=== PATIENT | female | born 1930 | race Caucasian/White ===

== ENCOUNTER 2017-02-24 05:54 | Emergency (ER) | payer MEDICARE ==
[~2017-02-24] VITALS: Ht 165.1 cm; Wt 61.5 kg
[~2017-02-24 05:54] MED LIST: ALEN70TA39 PO; APIX2.5 PO; ASPI81TA82 PO; AZIT500I PO; CALTCHW4 PO; COLL30OI3 TOP; CYCL-36 PO; DILTCD240 PO; FERR324T4 PO; FISH500C PO; FURO1TAB93 PO; FURO20 PO; IPRAAER PO; JOINCAP2 PO; KLOR20TA6 PO; LEVA500T PO; LISI-363 PO; MAGN400 PO; MEDR4PAK3 PO; METO50TA PO; METR-1 PO; NIFE1TAB85 PO; OXYC1SOL5 PO; POTA10TA2 PO; PRIN5TAB PO; ROBIDM5S PO; TEMA7.5 PO; VITA-83 PO; VITA100T13 PO; ZINC220C3 PO; [UNRECOGNIZED DRUG - CODE] PO
[2017-02-24 05:57] VITALS: BP 153/79; PULSE 90; RESP 18; TEMP 97.8; O2SAT 94
[2017-02-24] MEDS ORDERED: VITA100T54 PO (06:21)
[2017-02-24] MEDS ORDERED: APIX2.5T PO (06:21)
[2017-02-24] MEDS ORDERED: METO50TA PO (06:21)
--- NOTE | 2017-02-24 06:28 | PD ---
HPI Chief Complaint: Fall Time Seen by Provider: 06:19 Travel History International Travel<30 days: No Contact w/Intl Traveler<30days: No Traveled to known affect area: No History of Present Illness HPI The patient is an 86-year-old female that got up out of bed to go to the bathroom but her knees gave way and she lost balance and fell. She remembers the events up to the fall but there may have been a brief loss of consciousness after the fall. She fell on her head and right upper arm and suffered a contusion/abrasion to the right forehead. She has a scalp hematoma there. She has newly discovered atrial fibrillation and is on Eliquis for this. She is alert and oriented and not nauseated and has no headache and was the area of the scalp hematoma is palpated. She lives with her son at home. She drinks a glass of wine with dinner and a raspberry vodka martini before bed. She has not had a tetanus shot in over 10 years but she does not want another tetanus shot. PFSH Past Medical History Hx Anticoagulant Therapy: Yes Atrial Fibrillation: Yes Heart Rhythm Problems: Yes (AFIB THIS ADMISSION) Cancer: Yes (benign skin lesions on shoulder) Congestive Heart Failure: Yes (BNP ELEVATED THIS ADMISSION) Diminished Hearing: No Endocrine: No Genitourinary: Yes (Urgency) Hypertension: Yes Immune Disorder: No Insomnia: Yes Musculoskeletal: Yes (LOW BONE DENSITY) Neurologic: Yes (TIA 2013) Psychiatric: No Reproductive: Yes (Hysterectomy) Respiratory: No Immunizations Current: Yes Radiation Therapy: Yes (RIGHT FOOT FOR SKIN CA) Tetanus Vaccination: > 5 Years Influenza Vaccination: No : 4 Para: 4 Past Surgical History Abdominal Surgery: Yes Eye Surgery: Yes (bilateral cataract surgery 2014) Gynecologic Surgery: Yes (D&C 1949, bladder suspension 1969) Hysterectomy: Yes Tonsillectomy: Yes (ADNOIDS) Other Surgery: Yes (HEMORRHOIDECTOMY) Social History Alcohol Use: Yes (1 glass of wine and 1 martini nightly) Tobacco Use: No Substance Use: No Allergies-Medications (Allergen,Severity, Reaction): Coded Allergies: Aspirin (Verified Allergy, Severe, Bleeding, 02/24/17) See Uncoded Allergy/Adv Reaction (Verified Allergy, Unknown, 02/24/17) anesthesia Uncoded Allergies: ANESTHESIA (Allergy, Mild, 02/08/12) Reported Meds & Prescriptions Reported Meds & Active Scripts Active Reported Vitamin B-1 (Thiamine HCl) 100 Mg Tab 100 Mg PO DAILY Metoprolol Tartrate 50 Mg Tab 50 Mg PO BID Eliquis (Apixaban) 2.5 Mg Tab 2.5 Mg PO BID Review of Systems Except as stated in HPI: all other systems reviewed are Neg Physical Exam Narrative GENERAL: The patient is alert, oriented 3, does not appear intoxicated with alcohol and answers questions quickly and appropriately. SKIN: Focused skin assessment warm/dry. There is a 4 centimeter diameter hematoma on the right forehead. There is no associated bony deformity. HEAD: Neither raccoon eyes nor lei sign is present. Normocephalic. EYES: Pupils equal and round. No scleral icterus. No injection or drainage. ENT: No nasal bleeding or discharge. Mucous membranes pink and moist. There is no hemotympanum present. NECK: Trachea midline. No JVD. There is no posterior spinous process tenderness or deformity present. CARDIOVASCULAR: Regular rate and rhythm. No murmur appreciated. RESPIRATORY: No accessory muscle use. Clear to auscultation. Breath sounds equal bilaterally. GASTROINTESTINAL: Abdomen soft, non-tender, nondistended. Hepatic and splenic margins not palpable. No guarding or rebound is present. MUSCULOSKELETAL: No obvious deformities. No clubbing. No cyanosis. No edema. NEUROLOGICAL: Awake and alert. No obvious cranial nerve deficits. Motor grossly within normal limits. Normal speech. PSYCHIATRIC: Appropriate mood and affect; insight and judgment normal. Data Data Last Documented VS Vital Signs Date Time Temp Pulse Resp B/P Pulse Ox O2 Delivery O2 Flow Rate FiO2 02/24/17 06:05 18 94 Room Air 02/24/17 05:57 97.8 90 153/[address] Brain W/O Iv Contrast(Rout) (02/24/17 06:19) Wound Care (02/24/17 06:45) MDM Medical Decision Making Medical Screen Exam Complete: Yes Emergency Medical Condition: Yes Medical Record Reviewed: Yes Interpretation(s) The CT the brain shows a right frontal soft tissue contusion without any associated areas of fracture intracranial bleed. Also noted is a subpoena server atrophy and chronic ischemic small vessel vasculopathy. Differential Diagnosis Scalp contusion, skull fracture, intracranial bleed Narrative Course The patient is alert and oriented without headache or nausea. Her CAT scan does not show any skull fracture or intracranial bleed, only a right frontal soft tissue contusion. Her abrasion/contusion will be bandaged and she will go home. Diagnosis Primary Impression: Scalp contusion Additional Instructions: Please return to the emergency department if you start getting nausea, vomiting , increasing headache or unexplained weakness or sensory loss. Follow-up with your primary care physician next week. Med/Other Pt SpecificInfo: No Change to Meds Disposition: 01 DISCHARGE HOME Condition: Stable Gibran Rizvi MD Feb 24, 2017 06:28
--- NOTE | 2017-02-24 06:55 | RADRPT ---
EXAM DATE/TIME: 02/24/2017 06:32 [facility] COMPARISON: CT BRAIN W/O CONTRAST, November 11, 2015, 22:28. INDICATIONS : Trauma. Fall. Right frontal hematoma. RADIATION DOSE: 60.21 CTDIvol (mGy) MEDICAL HISTORY : Cardiovascular disease. Cerebrovascular disease. SURGICAL HISTORY : None. ENCOUNTER: Initial ACUITY: 1 day PAIN SCALE: 4/10 LOCATION: Right frontal TECHNIQUE: Multiple contiguous axial images were obtained of the head. Using automated exposure control and adj ustment of the mA and/or kV according to patient size, radiation dose was kept as low as reasonably a chievable to obtain optimal diagnostic quality images. DICOM format image data is available electro nically for review and comparison. FINDINGS: There is marked central and cortical atrophy with dilatation of ventricular and sulcal spaces. Scatte red areas of low-attenuation are seen throughout the white matter. 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 There is no parenchymal hemorrhage, acute infarction or mass lesion identified. There a re no extra-axial fluid collections appreciated. The posterior fossa is unremarkable with midline fo urth ventricle. The portion of the orbits and paranasal sinuses visualized are unremarkable. Right f rontal soft tissue hematoma. CONCLUSION: 1. Cerebral atrophy and chronic ischemic small vessel vasculopathy. 2. Right frontal soft tissue contusion. 3. No intraparenchymal hemorrhage. Gilbert Roman MD on February 24, 2017 at 6:50 Board Certified Radiologist. This report was verified electronically.
[2017-02-24 07:31] VITALS: BP 180/80
== END 2017-02-24 07:33 | disposition home or self-care (01) ==
LOC: PHED 05:54
DX: S00.83XA Contusion of other part of head, initial encounter (principal); S00.03XA Contusion of scalp, initial encounter; S00.81XA Abrasion of other part of head, initial encounter; I48.91 Unspecified atrial fibrillation; Z79.01 Long term (current) use of anticoagulants; I10 Essential (primary) hypertension; Z86.73 Personal history of transient ischemic attack (TIA), and cerebral infarction without residual deficits; W18.30XA Fall on same level, unspecified, initial encounter; Y93.89 Activity, other specified; Y92.013 Bedroom of single-family (private) house as the place of occurrence of the external cause; Y99.9 Unspecified external cause status
CPT/HCPCS: 70450; 99284

== ENCOUNTER 2017-03-29 02:44 | Emergency (ER) | payer MEDICARE ==
[~2017-03-29] VITALS: Ht 167.6 cm; Wt 63.0 kg
[~2017-03-29 02:44] MED LIST changes: -ALEN70TA39 PO; -APIX2.5 PO; +APIX2.5T PO; -ASPI81TA82 PO; -AZIT500I PO; -CALTCHW4 PO; -COLL30OI3 TOP; -CYCL-36 PO; -DILTCD240 PO; -FERR324T4 PO; -FISH500C PO; -FURO1TAB93 PO; -FURO20 PO; -IPRAAER PO; -JOINCAP2 PO; -KLOR20TA6 PO; -LEVA500T PO; -LISI-363 PO; -MAGN400 PO; -MEDR4PAK3 PO; -METR-1 PO; -NIFE1TAB85 PO; -OXYC1SOL5 PO; -POTA10TA2 PO; -PRIN5TAB PO; -ROBIDM5S PO; -TEMA7.5 PO; -VITA-83 PO; -VITA100T13 PO; +VITA100T54 PO; -ZINC220C3 PO; -[UNRECOGNIZED DRUG - CODE] PO
[2017-03-29 02:52] VITALS: BP 213/94; PULSE 57; RESP 24; TEMP 97.8; O2SAT 99
[2017-03-29] MEDS ORDERED: SERT25TA83 PO (03:12)
[2017-03-29] MEDS ORDERED: DIGO0.12 PO (03:12)
[2017-03-29] MEDS ORDERED: SODIUM CHLORIDE 0.9% FLUSH 5 ML FLUSH IV FLUSH PRN (03:15)
[2017-03-29 03:38] LABS: AUTOMATED NEUTROPHIL # 3.5 TH/MM3 (1.8-7.7); BASOPHIL % 0.7 % (0.0-2.0); EOSINOPHIL # 0.1 TH/MM3 (0-0.4); EOSINOPHIL % 0.9 % (0.0-4.0); HEMATOCRIT 45.2 % (35.0-46.0); HEMO FLAGS DIFF FINAL; LYMPH % 34.9 % (9.0-44.0); LYMPHOCYTE # 2.3 TH/MM3 (1.0-4.8); MEAN CELL VOLUME 101.2 FL (80.0-100.0); MEAN CORPUSCULAR HEMOGLOBIN 32.9 PG (27.0-34.0); MEAN CORPUSCULAR HGB CONC 32.5 % (32.0-36.0); MONO % 10.5 % (0.0-8.0); PLATELET COUNT 220 TH/MM3 (150-450); RED BLOOD COUNT 4.46 MIL/MM3 (4.00-5.30); RED CELL DISTRIBUTION WIDTH 15.2 % (11.6-17.2); WHITE BLOOD COUNT 6.7 TH/MM3 (4.0-11.0)
--- NOTE | 2017-03-29 03:53 | RADRPT ---
EXAM DATE/TIME: 03/29/2017 03:32 [facility] COMPARISON: CT BRAIN W/O CONTRAST, February 24, 2017, 6:32. INDICATIONS : Trauma, fall. Posterior head laceration. RADIATION DOSE: 35.30 CTDIvol (mGy) MEDICAL HISTORY : Hypertension. Skin cancer. SURGICAL HISTORY : Hysterectomy. ENCOUNTER: Initial ACUITY: 1 day PAIN SCALE: 6/10 LOCATION: cranial TECHNIQUE: Multiple contiguous axial images were obtained of the head. Using automated exposure control and adj ustment of the mA and/or kV according to patient size, radiation dose was kept as low as reasonably a chievable to obtain optimal diagnostic quality images. DICOM format image data is available electro nically for review and comparison. FINDINGS: Noncontrast axial head CT demonstrates the ventricles to be enlarged with a prominent sulcal pattern compatible with atrophy. No acute intracranial hemorrhage, acute cortical infarction, mass or midline shift is seen. There is old lacunar infarct involving the left basal ganglia. There is periventricul ar hypodensity compatible with chronic ischemic change slightly more than expected for patient this a ge.Posterior fossa structures are unremarkable. Bone windows demonstrate no abnormality. Scalp hematoma is present in the right parietal region CONCLUSION: Atrophy. No evidence of acute intracranial pathology. J Carlos Newman MD on March 29, 2017 at 3:50 Board Certified Radiologist. This report was verified electronically.
[2017-03-29 03:54] LABS: BICARBONATE 26.5 MEQ/L (21.0-32.0); POTASSIUM 3.5 MEQ/L (3.5-5.1)
--- NOTE | 2017-03-29 03:58 | PD ---
HPI Chief Complaint: Fall Time Seen by Provider: 03:09 Travel History International Travel<30 days: No Contact w/Intl Traveler<30days: No Traveled to known affect area: No History of Present Illness HPI 86-year-old female arrives to the ER by EMS. She had a fall tonight and was found in the shower stall by [facility] personnel. She landed striking the right occipital scalp causing hematoma with minimal bleeding. She complains of pain in the area of the occipital scalp. She had a fall 1 month ago as well. A head CT at that time was unremarkable. The patient Eliquis for A. fib. She has no chest pressure is breath or history of nausea vomiting recently. She denies any recent illness. The patient had 3 alcoholic drinks tonight. PFSH Past Medical History Hx Anticoagulant Therapy: Yes Atrial Fibrillation: Yes Heart Rhythm Problems: Yes (AFIB THIS ADMISSION) Cancer: Yes (benign skin lesions on shoulder) Congestive Heart Failure: Yes (BNP ELEVATED THIS ADMISSION) Diminished Hearing: No Endocrine: No Genitourinary: Yes (Urgency) Hypertension: Yes Immune Disorder: No Insomnia: Yes Musculoskeletal: Yes (LOW BONE DENSITY) Neurologic: Yes (TIA 2013) Psychiatric: No Reproductive: Yes (Hysterectomy) Respiratory: No Immunizations Current: Yes Radiation Therapy: Yes (RIGHT FOOT FOR SKIN CA) Tetanus Vaccination: Unknown : 4 Para: 4 Past Surgical History Abdominal Surgery: Yes Eye Surgery: Yes (bilateral cataract surgery 2014) Gynecologic Surgery: Yes (D&C 1949, bladder suspension 1969) Hysterectomy: Yes Tonsillectomy: Yes (ADNOIDS) Other Surgery: Yes (HEMORRHOIDECTOMY) Social History Alcohol Use: Yes (1 glass of wine and 1 martini nightly) Tobacco Use: No Substance Use: No Allergies-Medications (Allergen,Severity, Reaction): Coded Allergies: Aspirin (Verified Allergy, Severe, Bleeding, 03/29/17) See Uncoded Allergy/Adv Reaction (Verified Allergy, Unknown, 03/29/17) anesthesia Uncoded Allergies: ANESTHESIA (Allergy, Mild, 02/08/12) Reported Meds & Prescriptions Reported Meds & Active Scripts Active Reported Digoxin 0.125 Mg Tab 0.125 Mg PO DIRECTED Sertraline (Sertraline HCl) 25 Mg Tab 25 Mg PO DAILY Vitamin B-1 (Thiamine HCl) 100 Mg Tab 100 Mg PO DAILY Metoprolol Tartrate 50 Mg Tab 50 Mg PO BID Eliquis (Apixaban) 2.5 Mg Tab 2.5 Mg PO BID Review of Systems Except as stated in HPI: all other systems reviewed are Neg General / Constitutional: No: Fever Physical Exam Narrative GENERAL: 86 yo F, WNWD, AOx3, mild distress SKIN: Warm and dry. HEAD: Atraumatic. Normocephalic. 5cm R occipital hematoma with trace bleeding. EYES: Pupils equal and round. No scleral icterus. No injection or drainage. ENT: No nasal bleeding or discharge. Mucous membranes pink and moist. NECK: Trachea midline. No JVD. C-Collar present. CARDIOVASCULAR: Regular rate and rhythm. RESPIRATORY: No accessory muscle use. Clear to auscultation. Breath sounds equal bilaterally. GASTROINTESTINAL: Abdomen soft, non-tender, nondistended. Hepatic and splenic margins not palpable. MUSCULOSKELETAL: Extremities without clubbing, cyanosis, or edema. No obvious deformities. NEUROLOGICAL: Awake and alert. No obvious cranial nerve deficits. Motor grossly within normal limits. Five out of 5 muscle strength in the arms and legs. Normal speech. PSYCHIATRIC: Appropriate mood and affect; insight and judgment normal. Data Data Last Documented VS Vital Signs Date Time Temp Pulse Resp B/P Pulse Ox O2 Delivery O2 Flow Rate FiO2 03/29/17 04:00 71 20 201/95 98 Room Air 03/29/17 02:52 97.8 VS removed Orders Basic Metabolic Panel (Bmp) (03/29/17 03:09) Complete Blood Count With Diff (03/29/17 03:09) Urinalysis - C+S If Indicated (03/29/17 03:09) Ct Brain W/O Iv Contrast(Rout) (03/29/17 03:09) Blood Glucose (03/29/17 03:09) Ecg Monitoring (03/29/17 03:09) Iv Access Insert/Monitor (03/29/17 03:09) Oximetry (03/29/17 03:09) Sodium Chloride 0.9% Flush (Ns Flush) (03/29/17 03:15) Ct Cerv Spine W/O Contrast (03/29/17 03:09) Drug Screen, Random Urine (03/29/17 03:09) ^ [place] Collar (03/29/17 03:17) Cath For Specimen (03/29/17 03:41) Labs Laboratory Tests Test 03/29/17 03/29/17 03:10 03:45 White Blood Count 6.7 TH/MM3 Red Blood Count 4.46 MIL/MM3 Hemoglobin 14.7 GM/DL Hematocrit 45.2 % Mean Corpuscular Volume 101.2 FL Mean Corpuscular Hemoglobin 32.9 PG Mean Corpuscular Hemoglobin 32.5 % Concent Red Cell Distribution Width 15.2 % Platelet Count 220 TH/MM3 Mean Platelet Volume 7.4 FL Neutrophils (%) (Auto) 53.0 % Lymphocytes (%) (Auto) 34.9 % Monocytes (%) (Auto) 10.5 % Eosinophils (%) (Auto) 0.9 % Basophils (%) (Auto) 0.7 % Neutrophils # (Auto) 3.5 TH/MM3 Lymphocytes # (Auto) 2.3 TH/MM3 Monocytes # (Auto) 0.7 TH/MM3 Eosinophils # (Auto) 0.1 TH/MM3 Basophils # (Auto) 0.0 TH/MM3 CBC Comment DIFF FINAL Differential Comment Sodium Level 139 MEQ/L Potassium Level 3.5 MEQ/L Chloride Level 101 MEQ/L Carbon Dioxide Level 26.5 MEQ/L Anion Gap 12 MEQ/L Blood Urea Nitrogen 22 MG/DL Creatinine 1.11 MG/DL Estimat Glomerular Filtration 47 ML/MIN Rate Random Glucose 84 MG/DL Calcium Level 9.7 MG/DL Urine Color LIGHT-YELLOW Urine Turbidity HAZY Urine pH 5.5 Urine Specific [place] 1.007 Urine Protein TRACE mg/dL Urine Glucose (UA) NEG mg/dL Urine Ketones NEG mg/dL Urine Occult Blood NEG Urine Nitrite NEG Urine Bilirubin NEG Urine Urobilinogen LESS THAN 2.0 MG/DL Urine Leukocyte Esterase NEG Urine WBC 1 /hpf Urine Squamous Epithelial 4 /hpf Cells Urine Bacteria RARE /hpf Urine Mucus FEW /lpf Microscopic Urinalysis Comment CULT NOT INDICATED Urine Opiates Screen NEG Urine Barbiturates Screen NEG Urine Amphetamines Screen NEG Urine Benzodiazepines Screen NEG Urine Cocaine Screen NEG Urine Cannabinoids Screen NEG MDM Medical Decision Making Medical Screen Exam Complete: Yes Emergency Medical Condition: Yes Differential Diagnosis Intracranial hemorrhage, C-spine injury, dehydration, UTI, polysubstance abuse Narrative Course CBC & BMP Diagram 03/29/17 03:[address] and C-spine CT demonstrates no acute traumatic injury Patient's blood pressure has trended down to about 190/95. She is ready for discharge. It was ultimately revealed the patient had 3 alcoholic drinks this evening, which is considered an inappropriate habit for an 86-year-old female on Eliquis with frequent falls. With her work up largely unremarkable here, she is ready for discharge home. Diagnosis Primary Impression: Fall Qualified Code: W19.XXXA - Fall, initial encounter Additional Impression: Hematoma of occipital surface of head Qualified Code: S00.83XA - Hematoma of occipital surface of head, initial encounter Referrals: Primary Care Physician 2 days Additional Instructions: You have a choice when it comes to health care, and we are glad that you chose [facility]. Hopefully, we have met your expectations on today's visit. You are welcome to return to [facility] at any time, as we are committed to meeting the health care needs of our community. Med/Other Pt SpecificInfo: No Change to Meds Disposition: 01 DISCHARGE HOME Condition: Stable Arvind Shine MD Mar 29, 2017 03:58
[2017-03-29 04:00] VITALS: BP 201/95; PULSE 71; RESP 20; O2SAT 98
--- NOTE | 2017-03-29 04:03 | RADRPT ---
EXAM DATE/TIME: 03/29/2017 03:32 [facility] COMPARISON: CT CERVICAL SPINE W/O CONTRAST, June 10, 2015, 14:46. INDICATIONS : Trauma, fall. Posterior head laceration. RADIATION DOSE: 11.40 CTDIvol (mGy) MEDICAL HISTORY : Hypertension. Skin cancer. SURGICAL HISTORY : Hysterectomy. ENCOUNTER: Initial ACUITY: 1 day PAIN SCALE: 2/10 LOCATION: neck TECHNIQUE: Volumetric scanning of the cervical spine was performed. Multiplanar reconstructions in the sagittal, coronal and oblique axial planes were performed. Using automated exposure control and adjustment o f the mA and/or kV according to patient size, radiation dose was kept as low as reasonably achievable to obtain optimal diagnostic quality images. DICOM format image data is available electronically f or review and comparison. FINDINGS: CT of the cervical spine was performed in sagittal and axial planes. There is anterolisthesis likely related to facet arthritis at C6-C7, C7-T1 and T1-T2. There is multilevel disc space narrowing and ma rginal osteophyte formation maximal at C5-C6. No focal areas of marrow replacement are identified. Th e craniocervical junction appears normal. C2-C3: There is mild annular bulge of the disc. There is moderate facet arthritis on the right. C3-C4: There is osteophytic ridging asymmetric to the left. There is moderate neural foraminal narrowing on the left. There is moderate facet arthritis bilaterally with ligamentum flavum hypertrophy. C4-C5: There is severe facet arthritis on the left. There is uncovertebral joint hypertrophy on left side. T here is severe neural foraminal narrowing on the left. There is no significant spinal canal stenosis. C5-C6: There is osteophytic ridging along the posterior aspect of vertebral body. There is moderate neural f oraminal narrowing on the right. There is mild spinal canal stenosis. There is mild facet arthritis b ilaterally. C6-C7: There is broad-based annular bulge of disc. There is moderate neural foraminal narrowing bilaterally. There is severe neural foraminal narrowing bilaterally. There is moderate spinal canal stenosis. C7-T1: There is broad-based annular bulge of disc. There is mild to moderate spinal canal stenosis. There is severe facet arthritis bilaterally. CONCLUSION: 1. Extensive multilevel degenerative disc disease with moderate stenosis at C6-C7. Multilevel foramin al narrowing. 2. There is no evidence of acute fracture. J Carlos Newman MD on March 29, 2017 at 3:56 Board Certified Radiologist. This report was verified electronically.
[2017-03-29 04:43] LABS: BACTERIA, URINE RARE /hpf; BLOOD, URINE NEG (NEG); CULTURE IF INDICATED CULT NOT INDICATED; GLUCOSE,URINE NEG (NEG); KETONE, URINE NEG (NEG); MUCUS URINE FEW /lpf (OCC); NITRITE,URINE NEG (NEG); PH, URINE 5.5 (5.0-8.5); SQUAMOUS EPITHELIAL CELL URINE 4 /hpf (0-5); URINE COLOR LIGHT-YELLOW (YELLW/STRAW)
[2017-03-29 04:57] LABS: COMMENT (UR) CULT NOT INDICATED
[2017-03-29 06:46] VITALS: BP 199/91
--- NOTE | 2017-03-29 17:20 | EKG ---
Date Performed: 03/29/2017 Time Performed: 02:53:43 PTAGE: 86 years EKG: ATRIAL FIBRILLATION WITH SLOW VENTRICULAR RESPONSE MARKED RIGHT AXIS DEVIATION INCOMPLETE R IGHT BUNDLE BRANCH BLOCK MODERATE VOLTAGE CRITERIA FOR LVH, CONSIDER NORMAL VARIANT POSSIBLE SEPTAL M YOCARDIAL INFARCTION ABNORMAL ECG Since PREVIOUS TRACING , no significant change noted PREVIOUS TRACIN11/23/2015 07.32 DOCTOR: Saman Yuan Interpretating Date/Time 03/29/2017 17:18:27
== END 2017-03-29 06:49 | disposition home or self-care (01) ==
LOC: NEPC 02:44
DX: S00.83XA Contusion of other part of head, initial encounter (principal); W18.2XXA Fall in (into) shower or empty bathtub, initial encounter; I11.0 Hypertensive heart disease with heart failure; I48.91 Unspecified atrial fibrillation; I50.9 Heart failure, unspecified; Z85.828 Personal history of other malignant neoplasm of skin; Z86.73 Personal history of transient ischemic attack (TIA), and cerebral infarction without residual deficits; Z79.01 Long term (current) use of anticoagulants
CPT/HCPCS: 70450; 72125; 80048; 80307; 81001; 85025; 93005; 99285

== ENCOUNTER 2017-05-22 11:25 | Day surgery (SDC) | payer MEDICARE ==
[~2017-05-22 11:25] MED LIST changes: +DIGO0.12 PO; +SERT25TA83 PO
[2017-05-22] MEDS ORDERED: LOSA100T PO (11:53)
[2017-05-22] MEDS ORDERED: ATOR40TA16 PO (11:53)
[2017-05-22] MEDS ORDERED: NS 1000 ML IV SCH (12:00)
[2017-05-22] MEDS ORDERED: ceFAZolin 2 GM PREMIX 50 ML IV SCH (12:00)
[2017-05-22] MEDS ORDERED: CHLORHEXIDINE GLUCONATE 2 % 1 PACK (2 CLOTHS) TOPICAL SCH (12:00)
[2017-05-22] MEDS ORDERED: VANCOMYCIN 1000 MG/NS 250 ML IV SCH ×2 (12:00)
[2017-05-22] MEDS ORDERED: POVIDONE IODINE 5% (ANTISEPSIS KIT) 4 APPLICATIONS EACH NARE SCH (12:00)
[2017-05-22] MEDS ORDERED: MUPIROCIN 2% OINT 1 APPLIC/GM SYR NASAL SCH (12:00)
[2017-05-22] MEDS ORDERED: MIDAZOLAM HCL 2 MG/2 ML VIAL ONE (12:09)
--- NOTE | 2017-05-22 12:53 | MA ---
cc: PATRICK GAYTAN MD DATE 05/22/2017 PERFORMING PHYSICIAN Patrick Gaytan MD PREPROCEDURE DIAGNOSIS Syncope with atrial fibrillation/flutter. PROCEDURE PERFORMED 1. 15 minutes moderate IV sedation. 2. Successful loop recorder insertion. DESCRIPTION OF PROCEDURE After informed consent was obtained, 2 mg of Versed was given for moderate IV sedation. Next, a [employer] [place] LINQ loop recorder was inserted subcutaneously in the left chest. The patient tolerated this procedure well without any apparent complications. Tachybrady pause and atrial fibrillation detection was enabled. The initial R-wave was 0.66 mV. The serial number was [id number]. Patrick Gaytan MD AURELIO/ERIK /12:32 PM /12:46 PM
[2017-05-22] MEDS ORDERED: TEMA7.5C PO (17:51)
[2017-05-22] MEDS ORDERED: FURO80TA PO (17:51)
== END 2017-05-22 13:38 | disposition home or self-care (01) ==
LOC: HDIC 11:25 → HCAT 11:25
PROVIDERS: ATTEND Nuclear Medicine Nuclear Cardiology
DX: R55 Syncope and collapse (principal); I48.91 Unspecified atrial fibrillation; I48.92 Unspecified atrial flutter; I11.0 Hypertensive heart disease with heart failure; I50.9 Heart failure, unspecified; I73.9 Peripheral vascular disease, unspecified; I65.22 Occlusion and stenosis of left carotid artery; L76.22 Postprocedural hemorrhage of skin and subcutaneous tissue following other procedure; Z86.73 Personal history of transient ischemic attack (TIA), and cerebral infarction without residual deficits; Z79.01 Long term (current) use of anticoagulants; Z79.899 Other long term (current) drug therapy; Y83.9 Surgical procedure, unspecified as the cause of abnormal reaction of the patient, or of later complication, without mention of misadventure at the time of the procedure
CPT/HCPCS: 33282; C1764; J0690; J2250; J7030; 12001; 85025; 85610; 85730

== ENCOUNTER 2017-05-22 17:30 | Emergency (ER) | payer MEDICARE ==
[~2017-05-22 17:30] MED LIST changes: +ATOR40TA16 PO; +LOSA100T PO
[2017-05-22 17:32] VITALS: BP 183/79; PULSE 82; RESP 20; TEMP 98.2; O2SAT 96
[2017-05-22] MEDS ORDERED: FURO80TA PO (17:51)
[2017-05-22] MEDS ORDERED: TEMA7.5C PO (17:51)
[2017-05-22] MEDS ORDERED: GELATIN 12 MM/7 MM FOAM TOPICAL ONE (18:15)
--- NOTE | 2017-05-22 18:17 | PD ---
HPI Chief Complaint: Bleeding Time Seen by Provider: 17:41 Travel History International Travel<30 days: No Contact w/Intl Traveler<30days: No Traveled to known affect area: No History of Present Illness HPI Patient is an 86-year-old female who presents to emergency room with post op bleeding from her loop recorder that was placed today at [address] Garcia. Patient does have history of a.fib and does take eliquis -reports that she has not taken her eliquis since Thursday. Reports that she did not take her eliquis today. Reports that she started bleeding from her post op site around 4pm today. Denies lightheaded/dizzyness at this time. PFSH Past Medical History Hx Anticoagulant Therapy: Yes Atrial Fibrillation: Yes Heart Rhythm Problems: Yes Cancer: Yes (benign skin lesions on shoulder) Congestive Heart Failure: Yes Diminished Hearing: No Genitourinary: Yes (Urgency) Hypertension: Yes Insomnia: Yes Musculoskeletal: Yes (LOW BONE DENSITY) Neurologic: Yes (TIA 2013) Reproductive: Yes (Hysterectomy) Immunizations Current: Yes Radiation Therapy: Yes (RIGHT FOOT FOR SKIN CA) ?: Not : 4 Para: 4 Past Surgical History Abdominal Surgery: Yes Eye Surgery: Yes (bilateral cataract surgery 2014) Gynecologic Surgery: Yes (D&C 1949, bladder suspension 1969) Hysterectomy: Yes Tonsillectomy: Yes (ADNOIDS) Other Surgery: Yes (HEMORRHOIDECTOMY) Social History Alcohol Use: Yes (1 glass of wine and 1 martini nightly) Tobacco Use: No Substance Use: No Allergies-Medications (Allergen,Severity, Reaction): Coded Allergies: aspirin (Unverified Allergy, Severe, Bleeding, 04/08/17) Unable to Assess (Unverified Allergy, Unknown, 04/08/17) anesthesia Uncoded Allergies: ANESTHESIA (Allergy, Mild, 02/08/12) Reported Meds & Prescriptions Reported Meds & Active Scripts Active Reported Temazepam 7.5 Mg Cap 7.5 Mg PO HS PRN Furosemide 80 Mg Tab 80 Mg PO DAILY Losartan (Losartan Potassium) 100 Mg Tab 100 Mg PO DAILY Atorvastatin (Atorvastatin Calcium) 40 Mg Tab 40 Mg PO HS Digoxin 0.125 Mg Tab 0.125 Mg PO DIRECTED Sertraline (Sertraline HCl) 25 Mg Tab 25 Mg PO DAILY Metoprolol Tartrate 50 Mg Tab 50 Mg PO BID Eliquis (Apixaban) 2.5 Mg Tab 2.5 Mg PO BID Review of Systems General / Constitutional: No: Fever Eyes: No: Visual changes HENT: No: Headaches Cardiovascular: No: Chest Pain or Discomfort Respiratory: No: Shortness of Breath Gastrointestinal: No: Abdominal Pain Genitourinary: No: Dysuria Musculoskeletal: No: Pain Skin: Positive Other (oozing from post op site), No Rash Neurologic: No: Weakness Psychiatric: No: Depression Endocrine: No: Polydipsia Hematologic/Lymphatic: No: Easy Bruising Physical Exam Narrative GENERAL: NAD SKIN: Focused skin assessment warm/dry. HEAD: Atraumatic. Normocephalic. CARDIOVASCULAR: Regular rate and rhythm. No murmur appreciated. Patient with bleeding from post- op wound site RESPIRATORY: No accessory muscle use. Clear to auscultation. Breath sounds equal bilaterally. GASTROINTESTINAL: Abdomen soft, non-tender, nondistended. Hepatic and splenic margins not palpable. MUSCULOSKELETAL: No obvious deformities. No clubbing. No cyanosis. No edema. NEUROLOGICAL: Awake and alert. No obvious cranial nerve deficits. Motor grossly within normal limits. Normal speech. PSYCHIATRIC: Appropriate mood and affect; insight and judgment normal. Data Data Last Documented VS Vital Signs Date Time Temp Pulse Resp B/P (MAP) Pulse Ox O2 Delivery O2 Flow Rate FiO2 05/22/17 17:32 98.2 82 20 183/79 (113) 96 Orders Orders Complete Blood Count With Diff (05/22/17 18:09) Prothrombin Time / Inr (Pt) (05/22/17 18:09) Act Partial Throm Time (Ptt) (05/22/17 18:09) Gelatin 12 Mm/7 Mm Top (Gelfoam 12 Mm/7 (05/22/17 18:15) Lidocaine 1% Inj (50 Ml) (Xylocaine 1% I (05/22/17 18:30) Bacitracin Oint Packet (Bacitracin Oint (05/22/17 19:15) Labs Laboratory Tests Test 05/22/17 18:14 White Blood Count 7.4 TH/MM3 Red Blood Count 4.10 MIL/MM3 Hemoglobin 13.5 GM/DL Hematocrit 40.1 % Mean Corpuscular Volume 97.8 FL Mean Corpuscular Hemoglobin 32.8 PG Mean Corpuscular Hemoglobin Concent 33.6 % Red Cell Distribution Width 13.8 % Platelet Count 189 TH/MM3 Mean Platelet Volume 7.3 FL Neutrophils (%) (Auto) 73.3 % Lymphocytes (%) (Auto) 13.4 % Monocytes (%) (Auto) 12.3 % Eosinophils (%) (Auto) 0.5 % Basophils (%) (Auto) 0.5 % Neutrophils # (Auto) 5.5 TH/MM3 Lymphocytes # (Auto) 1.0 TH/MM3 Monocytes # (Auto) 0.9 TH/MM3 Eosinophils # (Auto) 0.0 TH/MM3 Basophils # (Auto) 0.0 TH/MM3 CBC Comment DIFF FINAL Differential Comment Prothrombin Time 11.3 SEC Prothromb Time International Ratio 1.0 RATIO Activated Partial Thromboplast Time 28.0 SEC MDM Medical Decision Making Medical Screen Exam Complete: Yes Emergency Medical Condition: Yes Medical Record Reviewed: Yes Interpretation(s) Vital Signs Date Time Temp Pulse Resp B/P (MAP) Pulse Ox O2 Delivery O2 Flow Rate FiO2 05/22/17 17:32 98.2 82 20 183/79 (113 96 Differential Diagnosis Differential includes postop bleeding from Loop recorder Narrative Course 86-year-old female who presents to emergency room with postop bleeding after loop recorder was placed around 1 PM this afternoon. Reports that she noticed blood from her postop site around 4pm today. Patient was on Eliquis but has not been on this since Thursday in preparation for this procedure. She currently is not on any anticoagulants at this time. Direct pressure was placed to 15 minutes to area bleeding, oozing did resolve and patient was observed. After 20 minutes - patient began to have oozing at wound site. Plan to take down steri strips and will place suture 3 simple interrupted sutures placed - patient with cessation of bleeding after sutures placed CBC & BMP Diagram 05/22/17 18:14 INR 1.0 Patient will follow up with Dr. Hunt in the office and will return to ER as needed Procedures Procedure Narrative LACERATION LOCATION: left chest wall LENGTH: 0.5cm NUMBER OF STITCHES/SANDRA: 3 simple interrupted sutures placed REPAIR: The area of the laceration was prepped with Betadine and sterilely draped. The laceration was infiltrated with 1% lidocaine. The wound was closed using3.0 nylon suture. This was a single layer repair. A sterile dressing was applied. The patient was advised to keep the dressing clean and dry. Patient tolerated the procedure well. Diagnosis Primary Impression: Post-operative state Referrals: Patrick Gaytan MD Patient Instructions: General Instructions Additional Instructions: Suture removal in 7 days Please keep area clean and dry Please follow up with your Glass Inspector Return to ER if symptom worsen or progress or as needed Disposition: 01 DISCHARGE HOME Condition: Stable Cecilia Hurt DO May 22, 2017 18:17
[2017-05-22 18:25] LABS: AUTOMATED NEUTROPHIL # 5.5 TH/MM3 (1.8-7.7); BASOPHIL % 0.5 % (0.0-2.0); EOSINOPHIL % 0.5 % (0.0-4.0); HEMATOCRIT 40.1 % (35.0-46.0); HEMO FLAGS DIFF FINAL; LYMPH % 13.4 % (9.0-44.0); MEAN CELL VOLUME 97.8 FL (80.0-100.0); MEAN CORPUSCULAR HEMOGLOBIN 32.8 PG (27.0-34.0); MEAN CORPUSCULAR HGB CONC 33.6 % (32.0-36.0); MONO % 12.3 % (0.0-8.0); NEUT % 73.3 % (16.0-70.0); PLATELET COUNT 189 TH/MM3 (150-450); RED CELL DISTRIBUTION WIDTH 13.8 % (11.6-17.2); WHITE BLOOD COUNT 7.4 TH/MM3 (4.0-11.0)
[2017-05-22] MEDS ORDERED: LIDOCAINE HCL 1% 50 ML VIAL INFIL ONE (18:30)
[2017-05-22 18:36] LABS: PROTHROMBIN TIME - PATIENT 11.3 SEC (9.8-11.6)
[2017-05-22] MEDS ORDERED: BACITRACIN OINT 0.9 GM PKT TOPICAL ONE (19:15)
[2017-05-22 19:53] VITALS: BP 158/72
== END 2017-05-22 19:56 | disposition home or self-care (01) ==
LOC: PHED 17:30
DX: L76.22 Postprocedural hemorrhage of skin and subcutaneous tissue following other procedure (principal); I48.91 Unspecified atrial fibrillation; I11.0 Hypertensive heart disease with heart failure; Z86.73 Personal history of transient ischemic attack (TIA), and cerebral infarction without residual deficits; Z79.01 Long term (current) use of anticoagulants; Z79.899 Other long term (current) drug therapy; Y83.9 Surgical procedure, unspecified as the cause of abnormal reaction of the patient, or of later complication, without mention of misadventure at the time of the procedure
CPT/HCPCS: 12001; 85025; 85610; 85730